=== PATIENT | female | born 1945 | race Caucasian/White ===

== ENCOUNTER 2021-02-12 17:31 | Inpatient (IN) | payer MEDICARE, OTHER ==
[~2021-02-12] VITALS: Ht 172.7 cm; Wt 104.6 kg
[2021-02-12 18:49] LABS: Basophils # (auto) 0 10 ^3/uL (0-0.2); Basophils % (auto) 0.2 % (0.0-2.0); Eosinophils # (auto) 0 10 ^3/uL (0-0.8); Hematocrit 34.9 % (36.0-46.0); Hemoglobin 10.5 g/dL (12.2-16.2); Lymphocytes # (auto) 1.1 10 ^3/uL (0.4-5.4); Lymphocytes % (auto) 6.8 % (10.0-50.0); Mean Corpuscular Hemoglobin 23.2 pg (28.0-32.0); Mean Corpuscular Hgb Conc. 30.2 g/dL (32.0-36.0); Mean Corpuscular Volume 76.7 fL (80.0-100.0); Monocytes # (auto) 0.7 10 ^3/uL (0-1.3); Monocytes % (auto) 4.6 % (0.0-12.0); Neutrophils # (auto) 13.6 10 ^3/uL (1.6-8.6); Neutrophils % (auto) 88.4 % (37.0-80.0); Nucleated Red Blood Cells % 0.3 %; Red Blood Cells 4.55 10^6/uL (4.0-5.20); Red Cell Distribution Width 18.6 % (11.8-14.3); White Blood Cell 15.4 10^3/uL (4.4-10.8)
[2021-02-12 19:03] LABS: INR 1.18 (0.9-1.15); Partial Thromboplastin Time < 20.0 sec (23.6-33.0)
[2021-02-12 19:04] LABS: Potassium 4.5 mmol/L (3.5-5.1)
[2021-02-12 19:15] LABS: Albumin 3.1 g/dL (3.4-5.0); BUN/Creatinine Ratio 22.9; Bilirubin, Total 0.3 mg/dL (0.2-1.0); Calcium 8.8 mg/dL (8.5-10.1); Total Protein 7.3 g/dL (6.4-8.2)
[2021-02-12] MEDS ORDERED: cefTRIAXone 1GM/50ML D5W 50 ML IV ONE (19:30)
[2021-02-12] MEDS ORDERED: SODIUM CHLORIDE 0.9% 1,000 ML IV ONE (19:30)
[2021-02-12 21:03] LABS: Urine Bacteria MANY /hpf (None Seen); Urine Blood Negative /uL (Negative); Urine Hyaline Cast MANY /lpf (0 - 2); Urine Mucus FEW (None Seen); Urine Specific Gravity 1.015 (1.001-1.035); Urine WBC 13 /hpf (0 - 5)
[2021-02-12 22:15] LABS: Alcohol, Urine < 3.0 mg/dL (0-10); Amphetamine Screen, Urine NEGATIVE (NEGATIVE); Barbiturate Scree,Urine NEGATIVE (NEGATIVE); Benzodiazephine Screen, Urine NEGATIVE (NEGATIVE); Cannabinoid Screen, Urine NEGATIVE (NEGATIVE); Cocaine Screen, Urine NEGATIVE (NEGATIVE); Opiate Scree,Urine POSITIVE (NEGATIVE); Phencyclidine Screen, Urine NEGATIVE (NEGATIVE)
[2021-02-12] MEDS ORDERED: MORPHINE SULFATE INJECTION 2 MG/ML SYRG IV PRN (22:45)
[2021-02-12] MEDS ORDERED: ONDANSETRON HCL 4 MG/2 ML VIAL IV PRN (22:45)
[2021-02-12] MEDS ORDERED: NITROGLYCERIN 0.4 MG SL TAB SL PRN (22:45)
[2021-02-12] MEDS ORDERED: DEXTROSE (50%) 50ML SYRG IV PRN (22:45)
[2021-02-12] MEDS ORDERED: SOD CHL 0.45% 1,000 ML IV ONE (22:45)
[2021-02-12] MEDS ORDERED: ACETAMINOPHEN 325 MG TAB PO PRN (22:45)
[2021-02-12] MEDS ORDERED: DOCUSATE SOD 100 MG CAP PO PRN (22:45)
[2021-02-13] VITALS (7 sets, daily range): BP systolic 124–154; BP diastolic 64–98
[2021-02-13 05:14] LABS: Basophils # (auto) 0.1 10 ^3/uL (0-0.2); Eosinophils # (auto) 0 10 ^3/uL (0-0.8); Hemoglobin 9.8 g/dL (12.2-16.2); Mean Corpuscular Hemoglobin 23.2 pg (28.0-32.0)
[2021-02-13 05:16] LABS: Basophils % (auto) 0.4 % (0.0-2.0); Hematocrit 31.9 % (36.0-46.0); Lymphocytes # (auto) 1.3 10 ^3/uL (0.4-5.4); Lymphocytes % (auto) 6.8 % (10.0-50.0); Mean Corpuscular Hgb Conc. 30.7 g/dL (32.0-36.0); Mean Corpuscular Volume 75.7 fL (80.0-100.0); Monocytes # (auto) 0.9 10 ^3/uL (0-1.3); Monocytes % (auto) 4.9 % (0.0-12.0); Neutrophils # (auto) 16.7 10 ^3/uL (1.6-8.6); Neutrophils % (auto) 87.9 % (37.0-80.0); Nucleated Red Blood Cells % 0.1 %; Red Blood Cells 4.21 10^6/uL (4.0-5.20)
[2021-02-13 05:26] LABS: Albumin 2.7 g/dL (3.4-5.0); Calcium 8.4 mg/dL (8.5-10.1); Potassium 4.8 mmol/L (3.5-5.1)
[2021-02-13 05:29] LABS: BUN/Creatinine Ratio 31.4
[2021-02-13 05:45] LABS: Bilirubin, Total 0.3 mg/dL (0.2-1.0)
[2021-02-13] MEDS ORDERED: SODIUM CHLOR 0.9% PF (SALINE LOCK) 10ML VIAL/SYR IV SCH (06:00)
[2021-02-13] MEDS: ACCU-CHEK COMFORT CURVE STRIP VI SCH ×4 (06:39→21:39)
[2021-02-13] MEDS: InsuLIN REG 1unit/0.01ml Soln (100units/ml) SC SCH ×4 (06:41→21:44)
[2021-02-13] MEDS: cefTRIAXone 1GM/50ML D5W 50 ML IV SCH (09:03)
[2021-02-13] MEDS: ZINC SULFATE 220mg CAP or TAB PO SCH (09:45)
[2021-02-13] MEDS: ASCORBIC ACID 500 MG TAB PO SCH ×2 (09:45→21:01)
[2021-02-13] MEDS: HEPARIN SODIUM (PORCINE) 5000 UNITS/ML 1ML VIAL SC SCH ×2 (09:46→21:02)
[2021-02-13] MEDS: MULTIPLE VITAMIN TAB PO SCH (09:47)
[2021-02-13] MEDS ORDERED: FAMOTIDINE (10MG/ML) 2ML VL IV SCH (10:00)
[2021-02-13] MEDS ORDERED: MONT-8 PO (11:02)
[2021-02-13] MEDS ORDERED: HYDR-4902 PO (11:02)
[2021-02-13] MEDS ORDERED: OXY5T PO (11:02)
[2021-02-13] MEDS ORDERED: GABA400C PO (11:02)
[2021-02-13] MEDS ORDERED: MELA3TAB27 PO (11:02)
[2021-02-13] MEDS ORDERED: GLIP5TAB12 PO (11:06)
[2021-02-13] MEDS ORDERED: FURO40TA4 PO (11:06)
[2021-02-13] MEDS ORDERED: FLUO40CA PO (11:06)
[2021-02-13] MEDS ORDERED: LORA0.5T20 PO (11:06)
[2021-02-13] MEDS ORDERED: LEV100T PO (11:06)
[2021-02-13] MEDS ORDERED: PANTOPRAZOLE 40 MG/10 ML VIAL INJ IV ONE (14:15)
[2021-02-13] MEDS ORDERED: LORazepam 0.5 MG TAB PO PRN (14:30)
[2021-02-13] MEDS ORDERED: CLINDAMYCIN 300MG IV 50 ML IV ONE (14:30)
[2021-02-13] MEDS ORDERED: IPRATROPIUM BROM 0.5 MG/2.5ML INH SOL NEB ONE (14:30)
[2021-02-13] MEDS ORDERED: ALBUTEROL SULF 2.5 MG/0.5ML(0.5%) NEB SOLN NEB ONE (14:30)
[2021-02-13] MEDS ORDERED: LORazepam 2MG/ML-1ML VIAL IV PRN (14:30)
[2021-02-13] MEDS: SODIUM CHLORIDE 0.9% 1,000 ML IV SCH (14:55)
[2021-02-13] MEDS: FUROSEMIDE 20 MG/2 ML VIAL IV SCH (17:56)
[2021-02-13] MEDS: IPRATROPIUM BROM 0.5 MG/2.5ML INH SOL NEB SCH ×3 (19:00→23:30)
[2021-02-13] MEDS: ALBUTEROL SULF 2.5 MG/0.5ML(0.5%) NEB SOLN NEB PRN ×2 (19:00→22:32)
[2021-02-13] MEDS: HYDROcodone-ACET 5/325MG TAB PO PRN (19:37)
[2021-02-13] MEDS: PANTOPRAZOLE 40 MG/10 ML VIAL INJ IV SCH (21:01)
[2021-02-13] MEDS: MONTELUKAST SODIUM 10 MG TAB PO SCH (21:01)
[2021-02-13] MEDS: CLINDAMYCIN 300MG IV 50 ML IV SCH (21:01)
[2021-02-14 05:00] VITALS: BP 145/67
[2021-02-14] MEDS: FUROSEMIDE 20 MG/2 ML VIAL IV SCH ×2 (05:40→17:19)
[2021-02-14] MEDS: SODIUM CHLORIDE 0.9% 1,000 ML IV SCH (05:40)
[2021-02-14] MEDS: CLINDAMYCIN 300MG IV 50 ML IV SCH ×3 (05:40→20:56)
[2021-02-14] MEDS: InsuLIN REG 1unit/0.01ml Soln (100units/ml) SC SCH ×4 (05:41→20:58)
[2021-02-14] MEDS: ACCU-CHEK COMFORT CURVE STRIP VI SCH ×4 (05:41→20:57)
[2021-02-14] MEDS: LEVOTHYROXINE SODIUM 100 MCG TAB PO SCH (06:01)
[2021-02-14 06:19] LABS: Basophils # (auto) 0.1 10 ^3/uL (0-0.2); Basophils % (auto) 0.4 % (0.0-2.0); Eosinophils # (auto) 0.2 10 ^3/uL (0-0.8); Eosinophils % (auto) 1.8 % (0.0-7.0); Hematocrit 29.6 % (36.0-46.0); Hemoglobin 9.1 g/dL (12.2-16.2); Lymphocytes # (auto) 1.9 10 ^3/uL (0.4-5.4); Mean Corpuscular Hemoglobin 23.7 pg (28.0-32.0); Mean Corpuscular Hgb Conc. 30.8 g/dL (32.0-36.0); Mean Corpuscular Volume 76.9 fL (80.0-100.0); Monocytes % (auto) 7.8 % (0.0-12.0); Neutrophils # (auto) 9.4 10 ^3/uL (1.6-8.6); Nucleated Red Blood Cells % 0.3 %; Red Blood Cells 3.85 10^6/uL (4.0-5.20); Red Cell Distribution Width 18.3 % (11.8-14.3); White Blood Cell 12.6 10^3/uL (4.4-10.8)
[2021-02-14 06:25] LABS: INR 1.1 (0.9-1.15); Partial Thromboplastin Time 23.6 sec (23.6-33.0)
[2021-02-14 06:32] LABS: Potassium 3.8 mmol/L (3.5-5.1)
[2021-02-14 06:51] LABS: % Iron Saturation 7.3 % (15-50); Albumin 2.6 g/dL (3.4-5.0); BUN/Creatinine Ratio 30.9; Bilirubin, Total 0.2 mg/dL (0.2-1.0); Calcium 8.4 mg/dL (8.5-10.1); Magnesium 2.6 mg/dL (1.6-2.6); Phosphorus 3.1 mg/dL (2.5-4.90); Total Protein 6.6 g/dL (6.4-8.2); Uric Acid 14.6 mg/dL (2.6-6.0)
[2021-02-14] MEDS: IPRATROPIUM BROM 0.5 MG/2.5ML INH SOL NEB SCH ×5 (06:51→22:59)
[2021-02-14] MEDS: ALBUTEROL SULF 2.5 MG/0.5ML(0.5%) NEB SOLN NEB PRN ×5 (06:52→22:59)
[2021-02-14 06:53] LABS: Thyroid Stimulating Hormone 0.25 uIU/mL (0.358-3.74)
[2021-02-14 08:50] VITALS: BP 123/57
[2021-02-14] MEDS ORDERED: OMNIPAQUE ORAL SOLN 500ml 12mg/ml PO ONE (08:52)
[2021-02-14] MEDS: cefTRIAXone 1GM/50ML D5W 50 ML IV SCH (09:21)
[2021-02-14] MEDS: PANTOPRAZOLE 40 MG/10 ML VIAL INJ IV SCH ×2 (09:22→20:56)
[2021-02-14] MEDS: HEPARIN SODIUM (PORCINE) 5000 UNITS/ML 1ML VIAL SC SCH ×2 (09:23→20:58)
[2021-02-14 13:00] VITALS: BP 152/57
[2021-02-14] MEDS: FLUoxetine HCL 20 MG CAP PO SCH (13:36)
[2021-02-14] MEDS: ASCORBIC ACID 500 MG TAB PO SCH ×2 (13:36→20:57)
[2021-02-14] MEDS: ZINC SULFATE 220mg CAP or TAB PO SCH (13:36)
[2021-02-14] MEDS: MULTIPLE VITAMIN TAB PO SCH (13:36)
[2021-02-14] MEDS: HYDROcodone-ACET 5/325MG TAB PO PRN ×2 (13:38→21:11)
[2021-02-14 16:45] VITALS: BP 165/73
[2021-02-14] MEDS: hydrALAZINE HCL 20 MG/ML VL IV PRN (17:18)
[2021-02-14] MEDS: MONTELUKAST SODIUM 10 MG TAB PO SCH (20:57)
[2021-02-14 22:00] VITALS: BP 137/60
[2021-02-15] MEDS: SODIUM CHLORIDE 0.9% 1,000 ML IV SCH ×2 (00:24→16:15)
[2021-02-15] MEDS: IPRATROPIUM BROM 0.5 MG/2.5ML INH SOL NEB SCH ×8 (02:36→22:33)
[2021-02-15] MEDS: ALBUTEROL SULF 2.5 MG/0.5ML(0.5%) NEB SOLN NEB PRN ×3 (02:36→22:33)
[2021-02-15] MEDS: CLINDAMYCIN 300MG IV 50 ML IV SCH (05:21)
[2021-02-15] MEDS: FUROSEMIDE 20 MG/2 ML VIAL IV SCH ×2 (05:22→17:55)
[2021-02-15] MEDS: hydrALAZINE HCL 20 MG/ML VL IV PRN (05:22)
[2021-02-15] MEDS: ACCU-CHEK COMFORT CURVE STRIP VI SCH ×4 (05:22→20:45)
[2021-02-15] MEDS: InsuLIN REG 1unit/0.01ml Soln (100units/ml) SC SCH ×4 (05:22→21:00)
[2021-02-15 05:28] VITALS: BP 162/81
[2021-02-15] MEDS: LEVOTHYROXINE SODIUM 100 MCG TAB PO SCH (06:05)
[2021-02-15 06:07] LABS: Basophils # (auto) 0.1 10 ^3/uL (0-0.2); Basophils % (auto) 0.6 % (0.0-2.0); Mean Corpuscular Hemoglobin 23.2 pg (28.0-32.0); Monocytes # (auto) 0.8 10 ^3/uL (0-1.3); White Blood Cell 9.7 10^3/uL (4.4-10.8)
[2021-02-15 06:09] LABS: Eosinophils # (auto) 0.4 10 ^3/uL (0-0.8); Eosinophils % (auto) 3.8 % (0.0-7.0); Hematocrit 31.3 % (36.0-46.0); Hemoglobin 9.7 g/dL (12.2-16.2); Lymphocytes # (auto) 1.2 10 ^3/uL (0.4-5.4); Lymphocytes % (auto) 12.5 % (10.0-50.0); Mean Corpuscular Hgb Conc. 30.9 g/dL (32.0-36.0); Monocytes % (auto) 8.3 % (0.0-12.0); Neutrophils # (auto) 7.3 10 ^3/uL (1.6-8.6); Neutrophils % (auto) 74.8 % (37.0-80.0); Nucleated Red Blood Cells % 0.2 %; Red Blood Cells 4.18 10^6/uL (4.0-5.20); Red Cell Distribution Width 18.1 % (11.8-14.3)
[2021-02-15 06:23] LABS: INR 1.06 (0.9-1.15); Partial Thromboplastin Time 24.8 sec (23.6-33.0)
[2021-02-15 06:25] LABS: Potassium 3.6 mmol/L (3.5-5.1)
[2021-02-15 06:46] LABS: Albumin 2.8 g/dL (3.4-5.0); BUN/Creatinine Ratio 26.6; Bilirubin, Total 0.5 mg/dL (0.2-1.0); Calcium 8.8 mg/dL (8.5-10.1); Magnesium 1.9 mg/dL (1.6-2.6); Phosphorus 2.3 mg/dL (2.5-4.90)
[2021-02-15 09:00] VITALS: BP 146/64
[2021-02-15] MEDS: cefTRIAXone 1GM/50ML D5W 50 ML IV SCH (09:30)
[2021-02-15] MEDS: ASCORBIC ACID 500 MG TAB PO SCH ×2 (10:00→20:45)
[2021-02-15] MEDS: MULTIPLE VITAMIN TAB PO SCH (10:00)
[2021-02-15] MEDS: ZINC SULFATE 220mg CAP or TAB PO SCH (10:00)
[2021-02-15] MEDS: FLUoxetine HCL 20 MG CAP PO SCH (10:00)
[2021-02-15] MEDS: HEPARIN SODIUM (PORCINE) 5000 UNITS/ML 1ML VIAL SC SCH ×2 (10:00→20:45)
[2021-02-15] MEDS: PANTOPRAZOLE 40 MG/10 ML VIAL INJ IV SCH ×2 (10:00→20:45)
[2021-02-15 13:00] VITALS: BP 157/93
[2021-02-15] MEDS ORDERED: LEVO-28 PO (13:09)
[2021-02-15 17:00] VITALS: BP 119/56
[2021-02-15] MEDS: MONTELUKAST SODIUM 10 MG TAB PO SCH (20:45)
[2021-02-15 22:00] VITALS: BP 123/54
== END 2021-02-15 23:00 | disposition hospice, home (50) | DRG 871 ==
LOC: EDBD 17:31 → ER 17:32 → TELE-WESTW 22:36
PROVIDERS: ADMIT Nurse Practitioner Family; ATTEND Internal Medicine
DX: A41.9 Sepsis, unspecified organism (principal); J96.01 Acute respiratory failure with hypoxia; G93.41 Metabolic encephalopathy; C16.9 Malignant neoplasm of stomach, unspecified; K92.2 Gastrointestinal hemorrhage, unspecified; N17.9 Acute kidney failure, unspecified; C78.00 Secondary malignant neoplasm of unspecified lung; C78.7 Secondary malignant neoplasm of liver and intrahepatic bile duct; E87.0 Hyperosmolality and hypernatremia; C79.31 Secondary malignant neoplasm of brain; N39.0 Urinary tract infection, site not specified; E66.2 Morbid (severe) obesity with alveolar hypoventilation; N18.4 Chronic kidney disease, stage 4 (severe); M35.1 Other overlap syndromes; I13.0 Hypertensive heart and chronic kidney disease with heart failure and stage 1 through stage 4 chronic kidney disease, or unspecified chronic kidney disease; I50.9 Heart failure, unspecified; E11.21 Type 2 diabetes mellitus with diabetic nephropathy; E03.9 Hypothyroidism, unspecified; E11.40 Type 2 diabetes mellitus with diabetic neuropathy, unspecified; E11.65 Type 2 diabetes mellitus with hyperglycemia; E78.5 Hyperlipidemia, unspecified; J44.9 Chronic obstructive pulmonary disease, unspecified; Z51.5 Encounter for palliative care; Z66 Do not resuscitate; D63.8 Anemia in other chronic diseases classified elsewhere; E11.22 Type 2 diabetes mellitus with diabetic chronic kidney disease; Z20.822 Contact with and (suspected) exposure to COVID-19; Z88.2 Allergy status to sulfonamides; Z68.35 Body mass index [BMI] 35.0-35.9, adult
CPT/HCPCS: 36415; 51702; 70450; 71045; 71250; 74176; 80053; 80307; 80320; 81001; 82306; 82550; 82962; 83540; 83550; 83605; 83615; 83735; 83880; 83970; 84100; 84146; 84443; 84484; 84550; 85025; 85610; 85730; 86850; 86900; 86901; 87040; 87077; 87086; 87088; 87186; 87426; 93005; 93306; 94640; 96361; 96365; C9113; G0378; J0696; J1815; J3490